=== PATIENT | male | born 1955 | race Caucasian/White ===

== ENCOUNTER → 2016-12-18 | Day surgery (SDC) | payer OTHER ==
[2016-12-18 11:21] LABS: HCT 45.2 % (42.0-52.0); HGB 15.4 g/dl (13.2-18.0); MCH 30.7 pg (25.0-31.0); MCHC 34.1 g/dL (32.0-36.0); MPV 9.7 fL (6.0-9.5); RBC 5.02 M/uL (4.70-6.00); RDW 13.2 % (11.5-14.0); WBC 6.3 K/uL (4.0-10.5)
== END | disposition home or self-care (01) ==
LOC: FAS 10:16
PROVIDERS: Legal Medicine
DX: M75.111 Incomplete rotator cuff tear or rupture of right shoulder, not specified as traumatic (principal); M75.41 Impingement syndrome of right shoulder; M19.011 Primary osteoarthritis, right shoulder; S43.401A Unspecified sprain of right shoulder joint, initial encounter; F32.9 Major depressive disorder, single episode, unspecified; F41.9 Anxiety disorder, unspecified; F17.210 Nicotine dependence, cigarettes, uncomplicated; J42 Unspecified chronic bronchitis; Z79.899 Other long term (current) drug therapy; Z98.890 Other specified postprocedural states
CPT/HCPCS: 36415; 71010; J1100; J1885; J2405; J2704; J2710; J2795; J3010